=== PATIENT | male | born 2000 | race African-American/Black ===

== ENCOUNTER 2019-04-30 14:30 | Emergency (ER) | payer SELFPAY ==
[~2019-04-30] VITALS: Ht 179.1 cm; Wt 97.1 kg
--- NOTE | 2019-04-30 14:47 | Emergency Room Report ---
History of Present Illness General Chief Complaint: Sore Throat Source: Patient Present Illness HPI 19-year-old male with no significant past medical history here complaining of 4 days of 10 out of 10 sore throat with swelling in his neck. Denies fever and chills, cough and congestion, ear pain. Has not taken medication for pain relief. Reports that he was recently sexually active and had oral intercourse. Denies pus drainage from the mouth. Denies recent travel and sick contact. Has not taken medication for symptom relief. Denies abdominal pain, nausea vomiting, and other associated symptoms. Denies meningismus, headache, photophobia, dizziness. Allergies: Coded Allergies: PENICILLINS (Verified Allergy, Unknown, 04/30/19) Patient History Past Medical History: see triage record Past Surgical History: unable to obtain Pertinent Family History: none Immunizations: UTD Reviewed Nursing Documentation: PMH: Agreed; PSxH: Agreed Nursing Documentation-PMH Past Medical History: No Stated History Review of Systems All Other Systems: negative except mentioned in HPI Physical Exam Vital Signs Date Time Temp Pulse Resp B/P (MAP) Pulse Ox O2 Delivery O2 Flow Rate FiO2 04/30/19 14:36 99.0 96 16 132/73 (92) 99 Room Air Sp02 EP Interpretation: reviewed, normal General Appearance: no apparent distress, alert, GCS 15, non-toxic Head: normocephalic, atraumatic Eyes: bilateral eye normal inspection, bilateral eye PERRL ENT: hearing grossly normal, no angioedema, TMs + canals normal, uvula midline , moist mucus membranes, tonsillar swelling, pharyngeal erythema, tonsillar exudate Neck: supple, no meningismus, no bony tend, other - anterior cervical lymphadenopathy Respiratory: chest non-tender, lungs clear, normal breath sounds, no wheezing, speaking full sentences Cardiovascular #1: regular rate, rhythm, no edema, no murmur Gastrointestinal: normal bowel sounds, non tender, soft, non-distended, no guarding, no rebound Rectal: deferred Genitourinary: normal inspection, no CVA tenderness Musculoskeletal: back normal, gait/station normal, normal range of motion, non- tender, no calf tenderness Neurologic: alert, oriented x3, responsive, motor strength/tone normal, sensory intact, speech normal Psychiatric: judgement/insight normal, memory normal, mood/affect normal, no suicidal/homicidal ideation Skin: no rash Lymphatic: adenopathy - anterior cervical Medical Decision Making PA Attestation All my diagnosis and treatment plans were reviewed ad discussed with my supervising physician Dr. Gil Diagnostic Impression: Primary Impression: Tonsillitis with exudate ER Course 19-year-old male with no significant past medical history here complaining of 4 days of 10 out of 10 sore throat with swelling in his neck. Denies fever and chills, cough and congestion, ear pain. Has not taken medication for pain relief. Reports that he was recently sexually active and had oral intercourse. Denies pus drainage from the mouth. Denies recent travel and sick contact. Has not taken medication for symptom relief. Denies abdominal pain, nausea vomiting, and other associated symptoms. Denies meningismus, headache, photophobia, dizziness. Ddx considered but are not limited to: strep pharyngitis, URI, tonsillitis, peritonsillar abscess, influneza Vital signs: are WNL, pt. is afebrile H&PE are most consistent with: Tonsillitis with exudate ORDERS: Azithromycin, ibuprofen ED INTERVENTIONS: None required at this time. DISCHARGE: At this time pt. is stable for d/c to home. Will provide printed patient care instructions, and any necessary prescriptions. Care plan and follow up instructions have been discussed with the patient prior to discharge. I advised the patient to follow-up with her primary care provider if symptoms do not improve after finishing antibiotic for throat culture azithromycin will cover both gonorrhea in the mouth as well as strep Last Vital Signs Date Time Temp Pulse Resp B/P (MAP) Pulse Ox O2 Delivery O2 Flow Rate FiO2 04/30/19 14:36 99.0 96 16 132/73 (92) 99 Room Air Disposition: HOME, SELF-CARE Condition: Stable Scripts Ibuprofen (Ibu) 800 Mg Tablet 800 MG PO BID, #20 TAB Prov: Evan La 04/30/19 Azithromycin* (ZITHROMAX*) 250 Mg Tablet 250 MG ORAL DAILY, #6 TAB 0 Refills Take two tables once daily for 1 day, then one tablet once daily for 4 days. Prov: Evan La 04/30/19 Patient Instructions: Tonsillitis, Sore Throat Additional Instructions: Take medication as directed follow-up with your primary care provider if worsening symptoms return to the emergency room Evan La Apr 30, 2019 14:47
[2019-04-30] MEDS ORDERED: IBU800 MG PO (14:48)
[2019-04-30] MEDS ORDERED: ZITHROMAX250 MG ORAL (14:48)
--- NOTE | 2019-04-30 15:00 | NUR ---
ER DISCHARGE NOTE: Patient is cleared to be discharged per ERMD, pt is aox4, on room air, with stable vital signs. pt was given dc and prescription instructions, pt was able to verbalize understanding, pt is able to ambulate with steady gait. pt took all belongings.
[2019-04-30 15:30] VITALS: BP 132/73
[2019-04-30 15:33] VITALS: BP 132/73
== END 2019-04-30 15:00 | disposition home or self-care (01) ==
LOC: EMR 14:45
DX: J03.90 Acute tonsillitis, unspecified (principal); Z88.0 Allergy status to penicillin
CPT/HCPCS: 99282

== ENCOUNTER 2019-10-11 15:15 | Emergency (ER) | payer SELFPAY ==
[~2019-10-11] VITALS: Ht 180.3 cm; Wt 90.7 kg
[~2019-10-11 15:15] MED LIST: IBU800 MG PO; ZITHROMAX250 MG ORAL
--- NOTE | 2019-10-11 15:27 | NUR ---
ED Nurse Note: Patient came to ED from home c/o 05/22 left ankle pain after twisting his ankle last night while drunk wrestling with his friends. Patient AxO x 4, no s/s of acute distress.
[2019-10-11] MEDS ORDERED: Ketorolac 30mg Inj IM ONE (15:45)
--- NOTE | 2019-10-11 15:53 | Diagnostic Imaging Report ---
EXAM: XR Left Foot Complete, 3 or More Views CLINICAL HISTORY: TRAUMA TECHNIQUE: Frontal, lateral and oblique views of the left foot. COMPARISON: No relevant prior studies available. FINDINGS: Bones/joints: Unremarkable. No acute fracture. No dislocation. Soft tissues: Unremarkable. No radiopaque foreign body. IMPRESSION: Normal left foot x-rays.
[2019-10-11] MEDS ORDERED: IBU800 MG PO (16:05)
[2019-10-11] MEDS ORDERED: ROBAXIN-500MG ORAL (16:05)
--- NOTE | 2019-10-11 16:05 | Emergency Room Report ---
History of Present Illness General Chief Complaint: Lower Extremity Injury Source: Patient Present Illness HPI 19-year-old male with no significant past medical history here complaining of 10 out of 10 left foot pain and swelling after twisting it and falling a lot during wrestling last night. Has been icing it with minimal relief. Has not taken medication for symptom relief. Obvious ecchymosis and swelling of the foot observed. Range of motion has been reduced on the affected side. Denies any calf swelling and tenderness. Denies any ankle pain. Denies head injury or loss of consciousness. No tingling or numbness reported. Allergies: Coded Allergies: PENICILLINS (Verified Allergy, Unknown, 04/30/19) Patient History Past Medical History: see triage record Past Surgical History: none Pertinent Family History: none Immunizations: UTD Reviewed Nursing Documentation: PMH: Agreed; PSxH: Agreed Nursing Documentation-PMH Past Medical History: No Stated History Review of Systems All Other Systems: negative except mentioned in HPI Physical Exam Vital Signs Date Time Temp Pulse Resp B/P (MAP) Pulse Ox O2 Delivery O2 Flow Rate FiO2 10/11/19 15:27 98.2 99 18 115/78 (90) 97 Room Air Sp02 EP Interpretation: reviewed, normal General Appearance: no apparent distress, alert, GCS 15, non-toxic Head: normocephalic, atraumatic Eyes: bilateral eye normal inspection, bilateral eye PERRL ENT: hearing grossly normal, normal pharynx, no angioedema, normal voice Neck: full range of motion, supple, no meningismus, supple/symm/no masses Respiratory: chest non-tender, lungs clear, normal breath sounds, no rhonchi, no retraction, no wheezing, speaking full sentences Cardiovascular #1: regular rate, rhythm, no edema, no murmur, normal capillary refill Cardiovascular #2: 2+ dorsalis pedis (R), 2+ dorsalis pedis (L) Gastrointestinal: normal bowel sounds, non tender, soft, non-distended, no guarding, no rebound Rectal: deferred Musculoskeletal: back normal, tender - Left metacarpal area, swelling - Swelling noted to left foot Neurologic: alert, motor strength/tone normal, oriented x3, sensory intact, responsive, speech normal Psychiatric: judgement/insight normal, memory normal, mood/affect normal, no suicidal/homicidal ideation Skin: no rash, other - Ecchymosis noted in left foot Lymphatic: no adenopathy Procedures Splinting Splinting : Consent: Verbal Location: Left foot Splint: poserior short Pre-Proc Neuro Vasc Exam: normal Post-Proc Neuro Vasc Exam: normal Patient Tolerated: Well Complications: None Progress Crutches provided Medical Decision Making PA Attestation Diagnosis and treatment plans were reviewed and discussed with my supervising physician Dr. Capone Diagnostic Impression: Primary Impression: Fracture of left foot Additional Impression: Foot sprain ER Course 19-year-old male with no significant past medical history here complaining of 10 out of 10 left foot pain and swelling after twisting it and falling a lot during wrestling last night. Has been icing it with minimal relief. Has not taken medication for symptom relief. Obvious ecchymosis and swelling of the foot observed. Range of motion has been reduced on the affected side. Denies any calf swelling and tenderness. Denies any ankle pain. Denies head injury or loss of consciousness. No tingling or numbness reported. Ddx considered but are not limited to: foot fracture, foot sprain, foot contusion, foot strain Vital signs: are WNL, pt. is afebrile H&PE are most consistent with: Left foot sprain with high suspicion for fracture ORDERS: foot Xray, Motrin, Robaxin ED INTERVENTIONS: Toradol IM, splint applied and crutches provided DISCHARGE: At this time pt. is stable for d/c to home. Will provide printed patient care instructions, and any necessary prescriptions. Care plan and follow up instructions have been discussed with the patient prior to discharge. Patient to follow-up with senior medical billing specialist, take medication as directed, if worsening symptoms return to the emergency room Other X-Ray Diagnostic Results Other X-Ray Diagnostic Results : X-Ray ordered: Left foot # of Views/Limited Vs Complete: 3 View Indication: Pain EP Interpretation: Yes DAVID Xray: Interpretation reviewed, by supervising MD, and agrees with findings. Interpretation: no dislocation, other - Swelling noted possible fracture Impression: Other - Foot sprain and possible fracture Electronically Signed by: Evan Lawler PA-C Last Vital Signs Date Time Temp Pulse Resp B/P (MAP) Pulse Ox O2 Delivery O2 Flow Rate FiO2 10/11/19 15:27 98.2 99 18 115/78 (90) 97 Room Air Status: improved Disposition: HOME, SELF-CARE Condition: Stable Scripts Methocarbamol* (ROBAXIN-500*) 500 Mg Tablet 500 MG ORAL TID PRN for For Pain, #15 TAB 0 Refills Prov: Evan La 10/11/19 Ibuprofen (Ibu) 800 Mg Tablet 800 MG PO TID, #30 TAB Prov: Evan La 10/11/19 Referrals: NOT CHOSEN IPA/MD,REFERRING (PCP) Patient Instructions: Foot Sprain Additional Instructions: High suspicion for fracture follow-up with senior medical billing specialist, x-ray to be repeated, keep immobilization on, use crutches, avoid bearing weight on the affected side, if worsening symptoms return to the emergency room. If feeling numbness or swelling underneath the splint take the splint off and return to the emergency room. Evan La Oct 11, 2019 16:05
--- NOTE | 2019-10-11 16:40 | NUR ---
ER DISCHARGE NOTE: Patient cleared for DC by Evan HERNANDEZ. Patient AxO x 4, no s/s of acute distress. Patient verbalized understanding of DC instructions. Patient ID band removed. Able to ambulate with steady gait, took all belongings.
[2019-10-11 16:41] VITALS: BP 115/78
== END 2019-10-11 16:41 | disposition home or self-care (01) ==
LOC: EMR 15:47
DX: S92.902A Unspecified fracture of left foot, initial encounter for closed fracture (principal); S93.602A Unspecified sprain of left foot, initial encounter; X50.1XXA Overexertion from prolonged static or awkward postures, initial encounter; Y93.72 Activity, wrestling; Y92.9 Unspecified place or not applicable; Z88.0 Allergy status to penicillin
CPT/HCPCS: 29515; 73630; 96372; 99283; J1885